=== PATIENT | female | born 1940 | race Caucasian/White ===

== ENCOUNTER 2021-11-23 08:33 | Outpatient (CLI) | payer MEDICARE, SELFPAY ==
[2021-11-23 13:39] LABS: Basophils Absolute Auto 0.03 K/uL (0.00-0.30); Basophils Percent Auto 0.5 % (0.0-3.0); Eosinophils Absolute Auto 0.14 K/uL (0.00-0.50); Eosinophils Percent Auto 2.2 % (0.0-7.0); Hematocrit 42.4 % (33.0-51.0); Hemoglobin* 13.8 gm/dL (12.0-16.0); Immature Granulocytes Abs Auto 0.02 K/uL (0.00-0.30); Lymphocytes Absolute Auto 1.68 K/uL (0.90-2.90); Lymphocytes Percent Auto 26.3 % (20-44); Mean Corpuscular HGB Conc 33 gm/dL (32-36); Mean Corpuscular Hemoglobin 28 pg (26-34); Mean Corpuscular Volume 86 fL (80-100); Monocytes Percent Auto 8.1 % (0.0-11.0); Neutrophils Percent Auto 62.6 % (42.0-72.0); Platelet Count* 209 K/uL (140-440); RDW Coefficient of Variation % 12.9 % (11.5-15.5); Red Blood Count 4.96 m/uL (4.00-5.20); White Blood Count* 6.39 K/uL (4.50-11.00)
[2021-11-23 13:43] LABS: Slide Review Reflex No
[2021-11-23 14:24] LABS: Chloride* 101 mmol/L (96-114); Potassium* 3.7 mmol/L (3.6-5.1); Sodium* 141 mmol/L (135-149)
[2021-11-23 14:26] LABS: Cholesterol* 231 mg/dL (90-199); Creatinine* 0.7 mg/dL (0.5-1.5); Estimated Glomerular Filt Rate 87 ml/min
[2021-11-23 14:27] LABS: Blood Urea Nitrogen* 15 mg/dL (7-30); Calcium* 9.2 mg/dL (8.4-10.6); Carbon Dioxide* 30 mmol/L (20-32); Glucose* 98 mg/dL (60-115); Triglycerides* 158 mg/dL (40-149)
[2021-11-23 14:28] LABS: HDL Cholesterol* 59 mg/dL (>=50); LDL Cholesterol Calculated 140 mg/dL (<100)
== END 2021-11-23 08:34 | disposition home or self-care (01) ==
PROVIDERS: PCP Family Medicine; Visit Provider Family Medicine
DX: Z00.00 Encounter for general adult medical examination without abnormal findings (principal); I10 Essential (primary) hypertension; J13 Pneumonia due to Streptococcus pneumoniae; K21.9 Gastro-esophageal reflux disease without esophagitis; Z13.6 Encounter for screening for cardiovascular disorders
CPT/HCPCS: 80048; 80061; 85025

== ENCOUNTER 2021-12-15 09:55 | Outpatient (CLI) | payer MEDICARE, SELFPAY ==
--- NOTE | 2021-12-15 10:00 | CRLHL7_ITS ---
For Patients: As a result of the Century Cures Act, medical imaging exams and procedure reports are released immediately into your electronic medical record. You may view this report before your referring provider. If you have questions, please contact your health care provider. Indication: Abnormal chest x-ray Technique: Post contrast CT chest. 75 cc Isovue 370 intravenous contrast. Please note that all CT scans at this facility use dose modulation, iterative reconstruction, and/or weight-based dosing when appropriate to reduce radiation dose to as low as reasonably achievable. Comparison: Chest x-ray 11/23/2021. CT 01/06/2018 Findings: 7.8 x 6.6 cm hiatal hernia. Incidental splenules. Simple cyst left kidney measuring 1.5 cm. Stable intrahepatic cysts within the right hepatic lobe measuring 1.8 cm and 1.9 cm. No pleural or pericardial effusion. No mediastinal, hilar or axillary adenopathy. Visualized thyroid is normal. No aortic dissection or aneurysm. Mild fibrotic changes bilaterally with thickened interlobular septa in a peripheral distribution bilaterally. No pneumothorax. No acute fracture. Impression: 7.8 cm hiatal hernia accounting for the radiographic density. No suspicious intrathoracic mass. Mild pulmonary fibrosis. Please note that all CT scans at this facility use dose modulation, iterative reconstruction, and/or weight-based dosing when appropriate to reduce radiation dose to as low as reasonably achievable. Dictated by Cristi Gee MD @ 12/15/2021 1:30:35 PM (Electronically Signed)
== END 2021-12-15 09:56 | disposition home or self-care (01) ==
LOC: CT 09:56
PROVIDERS: PCP Family Medicine; Visit Provider Family Medicine
DX: R91.8 Other nonspecific abnormal finding of lung field (principal); K44.9 Diaphragmatic hernia without obstruction or gangrene; J84.10 Pulmonary fibrosis, unspecified
CPT/HCPCS: 71260; Q9967

== ENCOUNTER 2022-10-11 09:38 | Outpatient (CLI) | payer MEDICARE, SELFPAY | END 2022-10-11 09:39 | disposition home or self-care (01) | LOC: OP CLINIC 09:38 | PROVIDERS: PCP Family Medicine; Visit Provider Surgery | DX: R19.5 Other fecal abnormalities (principal); K64.8 Other hemorrhoids; K63.5 Polyp of colon; K57.30 Diverticulosis of large intestine without perforation or abscess without bleeding | CPT/HCPCS: 45380; 45381; 45385; 88305; 99153; J1200; J2250; J3010 ==

== ENCOUNTER 2023-03-26 09:00 | Outpatient (CLI) | payer MEDICARE, SELFPAY ==
--- NOTE | 2023-03-26 09:15 | CRLHL7_ITS ---
For Patients: As a result of the Century Cures Act, medical imaging exams and procedure reports are released immediately into your electronic medical record. You may view this report before your referring provider. If you have questions, please contact your health care provider. BILATERAL SCREENING MAMMOGRAM WITH COMPUTER-AIDED DETECTION 03/26/2023 TECHNIQUE: CC and MLO views were obtained. These mammographic images have been obtained using full-field digital technique. These mammographic images were interpreted with the benefit of computer-aided detection. COMPARISON FILM: 05/31/2017, 09/13/2016. BREAST COMPOSITION: There are scattered areas of fibroglandular density FINDINGS: There is a possible 0.7 cm asymmetry LEFT lateral breast, 4.3 cm from the nipple. Negative findings RIGHT breast. IMPRESSION: Possible LEFT breast asymmetry. RECOMMENDATION: Recommend CC tomosynthesis, CC spot compression view and 90-degree lateral view. Additionally, ultrasound may be needed. ASSESSMENT: BI-RADS Category 0: Incomplete: Need Additional Imaging Evaluation and/or Prior Mammograms for Comparison [facility] will contact the patient for follow-up. A lay language report of this examination will be provided to the patient. Maribel Diaz M.D. Diagnostic/Breast Radiologist [email or web address] Transcribed: 11:40 am DW/Dictated by: Maribel Diaz MD @ 03/28/2023 10:33:00 AM (Electronically Signed)
== END 2023-03-26 09:01 | disposition home or self-care (01) ==
LOC: MAMMO 09:02
PROVIDERS: PCP Family Medicine; Visit Provider Family Medicine
DX: Z12.31 Encounter for screening mammogram for malignant neoplasm of breast (principal); N63.20 Unspecified lump in the left breast, unspecified quadrant
CPT/HCPCS: 77067

== ENCOUNTER 2023-04-09 08:40 | Outpatient (CLI) | payer MEDICARE, SELFPAY ==
--- NOTE | 2023-04-09 09:45 | CRLHL7_ITS ---
For Patients: As a result of the Cures Act, medical imaging exams and procedure reports are released immediately into your electronic medical record. You may view this report before your referring provider. If you have questions, please contact your health care provider. LEFT BREAST DIGITAL DIAGNOSTIC MAMMOGRAM WITH TOMOSYNTHESIS AND COMPUTER-AIDED DETECTION LEFT BREAST ULTRASOUND CLINICAL HISTORY: LEFT breast mass/asymmetry. COMPARISON: 03/26/2023, 08/10/2019, 03/20/2018, 09/13/2016. TECHNIQUE: Digital LEFT mammogram in three projections. Tomosynthesis and CAD utilized. Real-time ultrasound imaging of LEFT breast with imaging documentation. BREAST COMPOSITION: There are areas of scattered fibroglandular density. FINDINGS: 3D spot compression CC, open 3D CC and open true lateral CC LEFT breast mammogram images submitted. Decreased conspicuity of previously noted asymmetric density. Benign calcifications are present. No architectural distortion. Targeted LEFT breast ultrasound performed laterally 4 cm from the nipple. Normal breast tissue is present. No suspicious findings. IMPRESSION: No evidence of malignancy. RECOMMENDATIONS: Annual BILATERAL screening mammography. Results and recommendations discussed with the patient. BI-RADS Category 2: Benign A lay language report of this examination will be provided to the patient. Dictated by Cristi Gee MD @ 04/09/2023 10:45:44 AM jj/Dictated by: Cristi Gee MD @ 04/09/2023 10:45:00 AM (Electronically Signed)
--- NOTE | 2023-04-09 10:15 | CRLHL7_ITS ---
For Patients: As a result of the Cures Act, medical imaging exams and procedure reports are released immediately into your electronic medical record. You may view this report before your referring provider. If you have questions, please contact your health care provider. PLEASE SEE DIGITAL DIAGNOSTIC LEFT MAMMOGRAM PERFORMED SAME DAY CRL:[email or web address] payne/Dictated by: Cristi Gee MD @ 04/09/2023 10:45:00 AM (Electronically Signed)
== END 2023-04-09 08:41 | disposition home or self-care (01) ==
LOC: MAMMO 08:42
PROVIDERS: PCP Family Medicine; Visit Provider Family Medicine
DX: N63.20 Unspecified lump in the left breast, unspecified quadrant (principal); R92.8 Other abnormal and inconclusive findings on diagnostic imaging of breast
CPT/HCPCS: 76642; 77065; G0279

== ENCOUNTER 2023-08-15 10:04 | Outpatient (CLI) | payer MEDICARE, SELFPAY | END 2023-08-15 10:05 | disposition home or self-care (01) | PROVIDERS: PCP Family Medicine; Visit Provider Family Medicine | DX: Z00.00 Encounter for general adult medical examination without abnormal findings (principal); I10 Essential (primary) hypertension; Z13.6 Encounter for screening for cardiovascular disorders | CPT/HCPCS: 80048; 80061 ==

== ENCOUNTER 2025-01-05 11:06 | Outpatient (CLI) | payer MEDICARE, SELFPAY | END 2025-01-05 11:07 | disposition home or self-care (01) | PROVIDERS: PCP Family Medicine; Visit Provider Family Medicine | DX: I50.9 Heart failure, unspecified (principal); M85.80 Other specified disorders of bone density and structure, unspecified site | CPT/HCPCS: 80048; 80061; 82306; 83880; 85025 ==